=== PATIENT | male | born 2000 | race Caucasian/White ===

== ENCOUNTER → 2022-03-19 | Outpatient (CLI) | payer OTHER, SELFPAY ==
--- NOTE | 2022-03-19 12:48 | ECHOD_ITS ---
Reason For Study: NEAR SYNCOPE Procedure This was a 2D Doppler, Color Flow transthoracic echocardiogram. Exam performed in department. Left Ventricle Normal LV size. Left ventricular systolic function is normal. The estimated ejection fraction is 60 %. No regional wall motion abnormalities noted. Right Ventricle Normal RV size. Normal systolic function. Atria Normal left atrium. Normal right atrium. Bubble contrast study negative for right to left interatrial shunt. Mitral Valve Normal mitral valve. Tricuspid Valve Normal tricuspid valve. Aortic Valve Normal aortic valve. Trisinus/trileaflet aortic valve. Pulmonic Valve Normal pulmonic valve. Great Vessels Normal aortic root. The pulmonary artery is normal size. Normal inferior vena cava. Pericardium/Pleural No pericardial effusion. Medication 22 gauge I.V. with prn adaptor inserted into left arm. Performed a rapid injection of agitated mix of 9 cc saline and 1cc air to assess for atrial septal defect. MMode/2D Measurements & Calculations LVIDd: 4.2 cm IVSd: 1.1 cm Ao root diam: 3.4 cm LVIDs: 2.6 cm LVPWd: 1.0 cm FS: 39.8 % LAV(MOD-bp): 35.6 ml LVAd ap4: 28.4 cm2 SV(MOD-sp4): 52.1 ml LAV(MOD-bp) Indexed: 17.1 ml/m2 LVLd ap4: 7.7 cm LAV(MOD-sp2): 44.9 ml EDV(MOD-sp4): 85.2 ml LAV(MOD-sp4): 25.6 ml EDV(sp4-el): 89.2 ml LVAs ap4: 15.4 cm2 LVLs ap4: 6.3 cm ESV(MOD-sp4): 33.1 ml ESV(sp4-el): 32.2 ml EF(MOD-sp4): 61.1 % EF(sp4-el): 63.9 % SV(sp4-el): 57.0 ml LA A4 area: 12.0 cm2 RA A4 area: 16.3 cm2 Doppler Measurements & Calculations MV E max sriram: 85.5 cm/sec Ao V2 max: 110.7 cm/sec LV V1 max: 93.1 cm/sec MV A max sriram: 77.7 cm/sec Ao max P.9 mmHg LV V1 max P.5 mmHg MV E/A: 1.1 PA V2 max: 105.9 cm/sec ECHO/Echo Complete Interpretation Summary Normal LV size. Left ventricular systolic function is normal. The estimated ejection fraction is 60 %. Bubble contrast study negative for right to left interatrial shunt. Structurally normal valves. Ordering Physician: ANDREINA GANNON Referring Physician: ANDREINA GANNON Performed By: Alice Phan RCS
== END | disposition home or self-care (01) ==
PROVIDERS: PCP Family Medicine
DX: R55 Syncope and collapse (principal)
CPT/HCPCS: 93225; 93226; 93306; A4216